=== PATIENT | female | born 1945 | race Caucasian/White ===

== ENCOUNTER → 2018-04-30 | Outpatient (CLI) | payer MEDICARE ==
--- NOTE | 2018-05-01 08:13 | CT ---
EXAMINATION TYPE: CT abdomen pelvis wo con DATE OF EXAM: 04/30/2018 COMPARISON: 11/11/2013 HISTORY: Generalized abdominal pain. CT DLP: 865 mGycm Examination of the solid and hollow viscera is limited given the lack of contrast. FINDINGS: LUNG BASES: No evidence for nodule. No evidence for infiltrate. LIVER/GB: Cholecystectomy clips are in place. No space-occupying hepatic lesion. PANCREAS: No pancreatic mass identified. No inflammatory process seen. SPLEEN: No evidence for splenomegaly. No intrasplenic lesions seen. ADRENALS: No adrenal nodules identified. No evidence for thickening. KIDNEYS: No evidence for renal mass. No nephrolithiasis. No hydronephrosis. BOWEL: Appendix has a normal appearance. No evidence of bowel obstruction. No inflammatory process. Lymph nodes: No evidence for adenopathy greater than 1 cm. Abdominal aorta: Atheromatous changes seen. No evidence for aneurysm. Genital organs: Nonspecific right ovarian cystic lesion measures 4.8 cm and has increased in size fro m prior study with previous measurement of 2.4 cm. Ultrasound correlation is recommended. Left ovary and uterus are unremarkable. Other: Degenerative changes lumbar spine. IMPRESSION: 1. Enlarging right ovarian cystic lesion. Ultrasound correlation recommended. 2. No evidence of diverticulitis or inflammatory process.
== END | disposition home or self-care (01) ==
LOC: RADCTMAIN 19:24
PROVIDERS: ATTEND Family Medicine
DX: N83.201 Unspecified ovarian cyst, right side (principal)
CPT/HCPCS: 74176

== ENCOUNTER → 2018-07-22 | Outpatient (CLI) | payer MEDICARE ==
[2018-07-22 13:26] LABS: Basophils % (A) 1 %; Eosinophils # (A) 0.2 k/uL (0-0.7); Eosinophils % (A) 4 %; HCT 42.3 % (34.0-46.0); HGB 13.8 gm/dL (11.4-16.0); Lymphocytes # (A) 1.2 k/uL (1.0-4.8); Lymphocytes % (A) 22 %; MCH 29.3 pg (25.0-35.0); MCHC 32.6 g/dL (31.0-37.0); MCV 89.7 fL (80.0-100.0); Mean Platelet Volume 7.4; Monocytes # (A) 0.3 k/uL (0-1.0); Monocytes % (A) 7 %; Neutrophils # (A) 3.5 k/uL (1.3-7.7); Neutrophils % (A) 66 %; Platelet Count 204 k/uL (150-450); RBC 4.72 m/uL (3.80-5.40); RDW 13.7 % (11.5-15.5); WBC 5.3 k/uL (3.8-10.6)
[2018-07-22 13:35] LABS: Potassium 5.2 mmol/L (3.5-5.1)
--- NOTE | 2018-07-22 14:16 | XR ---
EXAMINATION TYPE: XR chest 2V DATE OF EXAM: 07/22/2018 COMPARISON: None TECHNIQUE: PA and lateral views submitted. HISTORY: Preop FINDINGS: No acute infiltrate. No pneumothorax or interstitial edema. Hyperinflation suggestive of COPD. Degene rative and hypertrophic change of the spine. Surgical clips in the abdomen. Diffuse osteopenia. Arthr opathy of the shoulders. Atherosclerotic change of aorta. IMPRESSION: 1. No acute process
== END | disposition home or self-care (01) ==
LOC: LABPAT 12:03
PROVIDERS: ATTEND Orthopaedic Surgery
DX: Z01.818 Encounter for other preprocedural examination (principal); Z01.812 Encounter for preprocedural laboratory examination; M23.92 Unspecified internal derangement of left knee
CPT/HCPCS: 36415; 71046; 80051; 85025; 93005

== ENCOUNTER 2018-08-06 10:37 | Day surgery (SDC) | payer MEDICARE ==
[2018-07-30 16:01] VITALS: BMI 28.7
--- NOTE | 2018-08-05 09:04 | HP ---
HISTORY AND PHYSICAL CHIEF COMPLAINT: Left knee pain. HISTORY OF PRESENT ILLNESS: The patient is a 73-year-old retired female who presents with progressive left knee pain after an initial injury in April of 2018. She notes intermittent giving way along with progressive pain with weightbearing activities. She has tried medications and an injection with only partial temporary relief. She notes she is limited because of pain. PAST MEDICAL HISTORY: Significant for arthritis. PAST SURGICAL HISTORY: Significant for gallbladder removal and cataract surgery. CURRENT MEDICATIONS: Ibuprofen and Tylenol. ALLERGIES: She has allergies to ERYTHROMYCIN. FAMILY HISTORY: Significant for stroke and hypertension. SOCIAL HISTORY: Significant for previous tobacco use, however, she quit in 1966. REVIEW OF SYSTEMS: Sixteen point review of systems otherwise reviewed and is noncontributory. PHYSICAL EXAMINATION: On examination, the patient is approximately 5 feet, 5 inches, 175 pounds of mesomorphic habitus. HEENT exam is nonfocal. Neck is supple. She has painless passive motion of her left hip. Straight leg raise is negative. Active motion left knee -8 to 140 degrees of flexion. She has a mild effusion. She is tender about the medial joint line. Collaterals are stable, Estevan's negative, Elodia's elicits medial pain. Her distal neurovascular exam appears intact in the left lower extremity. Previous MRI report for the left knee from 05/30/2018 shows a posterior medial meniscal tear. IMPRESSION: Symptomatic left knee medial meniscal tear. RECOMMENDATIONS: I talked to the patient at length regarding her condition and treatment options. At this point, she is quite symptomatic despite conservative measures. After thorough discussion, she opts to proceed with surgery. We will plan to proceed with arthroscopic evaluation with probable partial medial meniscectomy. We will likely perform that as an outpatient procedure. Risks and benefits were discussed at length in layman's terms. MMODL / IJN: [id number] /
[~2018-08-06 10:37] MED LIST: DEXAMETHASONE SOD PHOSPHATE 10 MG/ML 1 ML VIAL IV ONE; LACTATED RINGERS 1,000 ML IV SCH; MORPHINE SULFATE 2 MG/ML SYRINGE IV PRN; ONDANSETRON 4 MG/2 ML VIAL IVP ONE; ONDANSETRON 4 MG/2 ML VIAL IVP PRN; ceFAZolin IN SWFI 2 GM/20 ML SYRINGE IVP ONE
[2018-08-06 11:30] VITALS: RESP 16
[2018-08-06] MEDS ORDERED: LIDOCAINE 1% 20 ML VIAL (10MG/ML) FOR IV START INTRADERMA ONE (11:41)
[2018-08-06] MEDS ORDERED: LIDOCAINE 1% INJ 10MG/ML (20 ML MDV) ONE (13:07)
[2018-08-06] MEDS ORDERED: fentaNYL (PF) 50 MCG/ML 2 ML AMP ONE (13:07)
[2018-08-06] MEDS ORDERED: PROPOFOL 10 MG/ML 20 ML VIAL IV ONE (13:07)
[2018-08-06] MEDS ORDERED: GLYCOPYRROLATE 0.2 MG/ML 2 ML VIAL ONE (13:07)
[2018-08-06] MEDS ORDERED: PHENYLEPHRINE-0.9% NACL SYG 1 MG/10 ML SYRINGE ONE (13:07)
[2018-08-06] MEDS ORDERED: NEOSTIGMINE 1 MG/ML 10 ML VIAL ONE (13:07)
[2018-08-06] MEDS ORDERED: HYDROmorphone (PF) 1 MG/ML ONE (13:07)
[2018-08-06] MEDS ORDERED: ROCURONIUM BROMIDE 10 MG/ML 10 ML VIAL IV ONE (13:07)
[2018-08-06] MEDS ORDERED: MIDAZOLAM 2 MG/2 ML VIAL ONE (13:07)
[2018-08-06] MEDS ORDERED: SUCCINYLCHOLINE CHLORIDE 100 MG/5 ML SYR IV ONE (13:07)
[2018-08-06] MEDS ORDERED: LACTATED RINGERS 1,000 ML IV ONE (13:40)
--- NOTE | 2018-08-06 13:58 | P.OP ---
Date of Procedure: 08/06/18 Preoperative Diagnosis: Left knee internal derangement Postoperative Diagnosis: Left knee posterior medial meniscal tear/posterior lateral meniscal tear/medial patellofemoral plica Procedure(s) Performed: Left knee arthroscopic partial medial meniscectomy/partial lateral meniscectomy/ plica resection Anesthesia: WILL Surgeon: Abdoulaye Delgado Estimated Blood Loss (ml): 10 Pathology: none sent Condition: stable Disposition: PACU Indications for Procedure: The patient's 73-year-old female presents with progressive left knee pain and mechanical symptoms despite conservative measures. She noted she was significantly limited by this. A discussion of the risks and benefits of continued conservative measures versus operative intervention was made with patient. She opted to proceed with surgery. Operative risks to include infection, neurovascular injury, development of blood clots, possible incomplete resolution of symptoms, possible worsening symptoms and need for subscap procedures was discussed. Informed consent was obtained. Operative Findings: As below Description of Procedure: The patient was brought to the operating room, and after induction of general anesthesia examined the left knee. Collaterals were stable, Estevan was negative, and posterior drawer was negative. The left lower extremity was prepped and draped in a normal fashion. A superior lateral portal was made through a 3 mm skin incision superior and lateral to the patella. This was used for outflow. A lateral portal was made through a 5 mm vertical skin incision lateral to the patella tendon above the joint line. Diagnostic arthroscopy was performed. On inspection of the medial compartment, a complex tear involving the posterior horn of the medial meniscus in the white-red junction was noted. This was debrided back to stable base with straight baskets and a motorized shaver. The edges were contoured. Grade 2-3 chondral changes were noted diffusely in the medial compartment. On inspection of the notch, the anterior cruciate ligament appeared to be intact. On inspection of the lateral compartment, oblique tear involving the middle to posterior one third the white-white junction was noted. This was debrided back to stable base with straight baskets and a motorized shaver. The edges were contoured. On inspection of the patellofemoral articulation, there was degenerative changes however no loose chondral fragments. The appeared to be a large medial patellofemoral plica that appeared to impinge of the medial femoral condyle through the arc of motion. This debrided with motorized shaver back to stable base. The gutters were clear debris. The knee was then thoroughly irrigated. The portals were closed with Steri-Strips. A sterile dressing was applied in addition to a compression stocking. The patient was awoken from general anesthesia and transferred to recovery room in good condition. Blood loss was estimated at 10 mL. No complications were incurred.
[2018-08-06 14:18] VITALS: TEMP 97.1
[2018-08-06 16:06] VITALS: BP 139/78; PULSE 64
== END 2018-08-06 16:10 | disposition home or self-care (01) ==
LOC: OR 10:37
PROVIDERS: ATTEND Orthopaedic Surgery
DX: S83.242A Other tear of medial meniscus, current injury, left knee, initial encounter (principal); S83.282A Other tear of lateral meniscus, current injury, left knee, initial encounter; X58.XXXA Exposure to other specified factors, initial encounter; M67.52 Plica syndrome, left knee; M19.90 Unspecified osteoarthritis, unspecified site; E78.5 Hyperlipidemia, unspecified; Z79.1 Long term (current) use of non-steroidal anti-inflammatories (NSAID); Z79.899 Other long term (current) drug therapy; Z88.1 Allergy status to other antibiotic agents
CPT/HCPCS: 84132; 29880; J2250; J1100; J2710; J2405; J2001; J3010; J1170; J2370; J0330; J2704; J0690

== ENCOUNTER 2019-05-05 10:42 | Day surgery (SDC) | payer MEDICARE ==
[2019-05-02 10:36] VITALS: BMI 27.7
[~2019-05-05 10:42] MED LIST changes: -DEXAMETHASONE SOD PHOSPHATE 10 MG/ML 1 ML VIAL IV ONE; -MORPHINE SULFATE 2 MG/ML SYRINGE IV PRN; -ONDANSETRON 4 MG/2 ML VIAL IVP ONE; -ONDANSETRON 4 MG/2 ML VIAL IVP PRN; -ceFAZolin IN SWFI 2 GM/20 ML SYRINGE IVP ONE
[2019-05-05] MEDS ORDERED: LIDOCAINE 1% 20 ML VIAL (10MG/ML) FOR IV START INTRADERMA ONE (10:59)
[2019-05-05 11:16] VITALS: TEMP 98.9
[2019-05-05] MEDS ORDERED: LIDOCAINE 1% INJ 10MG/ML (20 ML MDV) ONE (11:23)
[2019-05-05] MEDS ORDERED: PROPOFOL 10 MG/ML 20 ML VIAL IV ONE (11:23)
--- NOTE | 2019-05-05 11:29 | P.GSHP ---
History of Present Illness H&P Date: 05/05/19 Chief Complaint: GERD, screening colonoscopy This is a 74-year-old female status post EGD colonoscopy. Patient has had issues with some GERD and gastritis. She will also screening colonoscopy performed today. Past Medical History Past Medical History: Hyperlipidemia, Hypertension Additional Past Medical History / Comment(s): HAVING UPPER ABDOMINAL PAIN, CONSTIPATION, HX OF COLON POLYP History of Any Multi-Drug Resistant Organisms: None Reported Past Surgical History: Cholecystectomy, Orthopedic Surgery Additional Past Surgical History / Comment(s): VIN KNEE ARTHROSCOPY, VIN CATARACT, RT EYE DETACHED RETINA SX Past Anesthesia/Blood Transfusion Reactions: No Reported Reaction Smoking Status: Former smoker - Past Family History Father Family Medical History: CVA/TIA Mother Family Medical History: No Reported History Medications and Allergies Home Medications Medication Instructions Recorded Confirmed Type Atorvastatin [Lipitor] 5 mg PO DAILY 07/09/15 05/05/19 History amLODIPine BESYLATE/BENAZEPRIL 1 cap PO QAM 05/02/19 05/05/19 History [Lotrel 5-10 MG] Allergies Allergy/AdvReac Type Severity Reaction Status Date / Time erythromycin base Allergy Rash/Hives Verified 05/05/19 10:53 Surgical - Exam Vital Signs Temp Pulse Resp BP Pulse Ox 98.9 F 84 16 148/69 93 L 05/05/19 10:54 05/05/19 10:54 05/05/19 10:54 05/05/19 10:54 05/05/19 10:54 - General well developed, well nourished, no distress - Eyes PERRL - ENT normal pinna - Neck no masses - Respiratory normal expansion - Cardiovascular Rhythm: regular - Abdomen Abdomen: soft, non tender Assessment and Plan Assessment: GERD we'll perform EGD. We'll also perform screening colonoscopy.
--- NOTE | 2019-05-05 11:46 | P.OP ---
Date of Procedure: 05/05/19 Preoperative Diagnosis: Gastritis Screening colonoscopy Postoperative Diagnosis: Antral gastritis Diverticulosis Hemorrhoids Procedure(s) Performed: EGD Colonoscopy Anesthesia: MAC Surgeon: Elia Gilmore Pathology: other (Antrum) Condition: stable Disposition: PACU Description of Procedure: The patient's placed on the endoscopy table in the lateral position. She received IV sedation. The gastric was placed oropharynx passed in the esophagus into the stomach. Scope was placed through the pylorus. The first and second portion of duodenum appeared normal. Scope was then brought back the antrum and this was mildly inflamed. A biopsies performed. The scope was unretroflexed and remainder of the stomach appeared normal. There was no significant hiatal hernia. The GE junction was at 47 is. The distal esophagus. Normal. The proximal esophagus appeared normal. Scope was withdrawn for patient. Next digital rectal exam is performed which revealed internal/external hemorrhoids. The flexible colonoscope was then placed patient anus and passed throughout the entire colon. The ileocecal valve was visualized. The cecum, ascending and transverse colon appeared normal. In the descending and; was mild diverticular changes. The scope was then brought back the rectum this appeared normal. Scope withdrawn from patient and internal extra hemorrhoids are noted. Scope was withdrawn for patient.
[2019-05-05 11:53] VITALS: BP 98/63; PULSE 83; RESP 18
== END 2019-05-05 12:24 | disposition home or self-care (01) ==
LOC: ORWHC2ENDO 10:42
PROVIDERS: ATTEND Surgery
DX: Z12.11 Encounter for screening for malignant neoplasm of colon (principal); K29.50 Unspecified chronic gastritis without bleeding; E78.5 Hyperlipidemia, unspecified; K21.9 Gastro-esophageal reflux disease without esophagitis; K57.30 Diverticulosis of large intestine without perforation or abscess without bleeding; I10 Essential (primary) hypertension; Z86.010 Personal history of colon polyps; Z87.891 Personal history of nicotine dependence; Z79.899 Other long term (current) drug therapy; Z88.1 Allergy status to other antibiotic agents
CPT/HCPCS: 88305; 43239; J2001; J2704; G0121

== ENCOUNTER → 2019-06-02 | Outpatient (CLI) | payer MEDICARE | END | disposition home or self-care (01) | LOC: LABWHC1 13:35 | PROVIDERS: ATTEND Obstetrics & Gynecology | DX: N83.209 Unspecified ovarian cyst, unspecified side (principal) | CPT/HCPCS: 36415; 86304 ==

== ENCOUNTER → 2019-06-23 | Outpatient (CLI) | payer MEDICARE ==
--- NOTE | 2019-06-24 14:43 | MM ---
Reason for exam: screening (asymptomatic). Last mammogram was performed 4 years ago. History: Patient is postmenopausal. Physical Findings: A clinical breast exam by your physician is recommended on an annual basis and results should be correlated with mammographic findings. MG 3D Screening Mammo W/Cad Bilateral CC and MLO view(s) were taken. Prior study comparison: June 12, 2015, bilateral MG screening mammo w CAD. No significant changes when compared with prior studies. ASSESSMENT: Benign, BI-RAD 2 RECOMMENDATION: Routine screening mammogram of both breasts in 1 year.
== END | disposition home or self-care (01) ==
LOC: RADMAMWWP 13:41
PROVIDERS: ATTEND Family Medicine
DX: Z12.31 Encounter for screening mammogram for malignant neoplasm of breast (principal)
CPT/HCPCS: 77063; 77067

== ENCOUNTER → 2021-03-10 | Day surgery (SDC) | payer MEDICARE ==
[2021-03-08 17:52] VITALS: BMI 28.2
[~2021-03-10] MED LIST changes: +LIDOCAINE 1% (10MG/ML) FOR IV START INTRADERMA PRN; +LIDOCAINE 1% INJ 10MG/ML (20 ML MDV) ONE; +PROPOFOL 10 MG/ML 20 ML VIAL IV ONE
[2021-03-10 08:42] VITALS: TEMP 97.7
--- NOTE | 2021-03-10 09:53 | P.GSHP ---
History of Present Illness H&P Date: 03/10/21 Chief Complaint: Constipation, screening colonoscopy This a 75-year-old female who presents today for colonoscopy. She's had issues with constipation. Past Medical History Past Medical History: Hyperlipidemia, Hypertension Additional Past Medical History / Comment(s): HX OF COLON POLYP, diverticulitis, colitis. c/o bowel irregularity History of Any Multi-Drug Resistant Organisms: None Reported Past Surgical History: Cholecystectomy, Orthopedic Surgery Additional Past Surgical History / Comment(s): VIN KNEE ARTHROSCOPY, VIN PETER RACT, RT EYE DETACHED RETINA SX. Colonoscopy, EGD Past Anesthesia/Blood Transfusion Reactions: No Reported Reaction Smoking Status: Former smoker - Past Family History Father Family Medical History: CVA/TIA Mother Family Medical History: No Reported History Medications and Allergies Home Medications Medication Instructions Recorded Confirmed Type Atorvastatin [Lipitor] 5 mg PO DAILY 07/09/15 03/10/21 History amLODIPine BESYLATE/BENAZEPRIL 1 cap PO QAM 05/02/19 03/08/21 History [Lotrel 5-10 MG] Acetaminophen [Tylenol Extra 500 - 1,000 mg PO DIRECTED PRN 03/08/21 03/10/21 History Strength] Aspirin [Adult Low Dose Aspirin EC] 81 mg PO DAILY 03/08/21 03/08/21 History Allergies Allergy/AdvReac Type Severity Reaction Status Date / Time erythromycin base Allergy Rash/Hives Verified 03/10/21 08:40 Surgical - Exam Vital Signs Temp Pulse Resp BP Pulse Ox 97.7 F 70 17 169/81 96 03/10/21 08:40 03/10/21 08:40 03/10/21 08:40 03/10/21 08:40 03/10/21 08:40 - General well developed, well nourished, no distress - Eyes PERRL - ENT normal pinna - Neck no masses - Respiratory normal expansion - Cardiovascular Rhythm: regular - Abdomen Abdomen: soft, non tender Assessment and Plan Assessment: Constipation We'll perform screening colonoscopy
[2021-03-10 10:38] VITALS: BP 145/87; PULSE 70; RESP 17
--- NOTE | 2021-03-10 10:44 | P.OP ---
Date of Procedure: 03/10/21 Preoperative Diagnosis: Constipation Screening colonoscopy Postoperative Diagnosis: Diverticulosis Rectal polyp Procedure(s) Performed: Colonoscopy Anesthesia: MAC Surgeon: Elia Gilmore Pathology: other (Rectal polyp) Condition: stable Disposition: PACU Description of Procedure: The patient's placed on the endoscopy table in the lateral position. She received IV cyst. Digital rectal exam was performed which revealed no abnormalities. The colonoscope was then placed patient anus and passed thro ughout the entire colon. The ileocecal valve was visualized. The cecum, ascending and transverse colon appeared normal. The descending and sigmoid colon moderate diverticulosis. Scope was brought back the rectum and there was a small polyp seen this removed with a cold forcep. Scope was withdrawn for patient.
== END ==
LOC: ORWHC2ENDO 08:16
PROVIDERS: ATTEND Surgery
DX: K57.30 Diverticulosis of large intestine without perforation or abscess without bleeding (principal); D12.8 Benign neoplasm of rectum; E78.5 Hyperlipidemia, unspecified; I10 Essential (primary) hypertension; Z86.010 Personal history of colon polyps; Z87.19 Personal history of other diseases of the digestive system; Z90.49 Acquired absence of other specified parts of digestive tract; Z98.890 Other specified postprocedural states; Z98.42 Cataract extraction status, left eye; Z98.41 Cataract extraction status, right eye; Z87.891 Personal history of nicotine dependence; Z86.73 Personal history of transient ischemic attack (TIA), and cerebral infarction without residual deficits; Z79.82 Long term (current) use of aspirin; Z79.899 Other long term (current) drug therapy; Z88.1 Allergy status to other antibiotic agents
CPT/HCPCS: 88305; 45380; J2001; J2704

== ENCOUNTER → 2021-04-11 | Outpatient (CLI) | payer MEDICARE ==
--- NOTE | 2021-04-18 10:27 | MM ---
Reason for exam: screening (asymptomatic). Last mammogram was performed 1 year and 10 months ago. History: Patient is postmenopausal. Physical Findings: A clinical breast exam by your physician is recommended on an annual basis and results should be correlated with mammographic findings. MG 3D Screening Mammo W/Cad Bilateral CC and MLO view(s) were taken. Prior study comparison: June 23, 2019, bilateral MG 3d screening mammo w/cad. June 12, 2015, bilateral MG screening mammo w CAD. There are scattered fibroglandular densities. Benign vascular calcifications. Central left MLO asymmetric density does not persist on 3D images. No significant changes when compared with prior studies. ASSESSMENT: Benign, BI-RAD 2 RECOMMENDATION: Routine screening mammogram of both breasts in 1 year. Patient should continue monthly self breast exams. A negative report should not preclude additional follow up of suspicious palpable abnormalities.
== END | disposition home or self-care (01) ==
LOC: RADMAMWWP 15:48
PROVIDERS: ATTEND Obstetrics & Gynecology
DX: Z12.31 Encounter for screening mammogram for malignant neoplasm of breast (principal); Z78.0 Asymptomatic menopausal state
CPT/HCPCS: 77063; 77067

== ENCOUNTER → 2021-08-23 | Outpatient (CLI) | payer MEDICARE ==
--- NOTE | 2021-08-24 07:49 | CT ---
EXAMINATION TYPE: CT abdomen pelvis wo con DATE OF EXAM: 08/23/2021 HISTORY: RUQ pain, ureteral vaginal prolapse bladder, diverticulitis. CT DLP: 765.6 mGycm. Automated Exposure Control for Dose Reduction was Utilized. TECHNIQUE: CT scan of the abdomen and pelvis is performed with oral but without IV contrast. COMPARISON: Prior CT April 30, 2018 FINDINGS: Within the limitations of a non-contrast study, the following observations are made. LUNG BASES: No significant abnormality is appreciated. LIVER/GB: Cholecystectomy clips are redemonstrated. PANCREAS: No significant abnormality is seen. SPLEEN: No significant abnormality is seen. ADRENALS: No significant abnormality is seen. KIDNEYS: New moderate to severe right greater than left bilateral hydronephrosis. Hydroureter is pres ent. There is inferior displacement or prolapse of bladder seen best sagittal image 72. It is thought the UV junction bilaterally is at site of prolapse causing ureteral obstruction. BOWEL: Oral contrast reaches the splenic flexure. No suspicious small or large bowel dilatation. Norm al-appearing appendix from cecum in the right lower quadrant. Few diverticula in the proximal sigmoid colon. No CT evidence for acute diverticulitis. GENITAL ORGANS: Uterus prolapsed completely inferiorly seen best sagittal image 71 posterior to porti on of prolapsed bladder. Slightly larger thin-walled 6.1 x 4.8 cm right pelvic cyst or cystic lesion present in the right ovarian origin axial image 64. Few scattered pelvic phleboliths. LYMPH NODES: No greater than 1cm abdominal or pelvic lymph nodes are appreciated. OSSEOUS STRUCTURES: Underlying levoconvex scoliosis centered at L2-L3 level redemonstrated. Moderate to severe disc space narrowing with spurring and sclerosis right L2-L3 and right L3-L4 levels along w ith left L4-L5 levels. OTHER: Tiny fat-containing umbilical hernia. IMPRESSION: Complete prolapse of uterus. Partial prolapse of bladder. New Moderate to severe right greater than left hydronephrosis due to distal ureters extending inferiorly into portion of bladder that is prolapsed.
== END | disposition home or self-care (01) ==
LOC: RADCTMAIN 16:42
PROVIDERS: ATTEND Family Medicine
DX: N81.3 Complete uterovaginal prolapse (principal)
CPT/HCPCS: 74176

== ENCOUNTER → 2021-11-03 | Outpatient (CLI) | payer MEDICARE ==
--- NOTE | 2021-11-03 15:36 | XR ---
EXAMINATION TYPE: XR chest 2V DATE OF EXAM: 11/03/2021 COMPARISON: Chest x-ray 07/22/2018 HISTORY: Chronic cough TECHNIQUE: Frontal and lateral views of the chest are obtained. FINDINGS: There is no focal air space opacity, pleural effusion, or pneumothorax seen. The cardiac silhouette size is stable. There is eventration of the right hemidiaphragm. Aorta is dense. Arthropat hy present at the chromic clavicular joint. The osseous structures are intact. IMPRESSION: No acute cardiopulmonary process.
== END | disposition home or self-care (01) ==
LOC: RADXRMAIN 14:23
PROVIDERS: ATTEND Family Medicine
DX: R05.3 Chronic cough (principal)
CPT/HCPCS: 71046

== ENCOUNTER 2024-11-13 09:04 | Day surgery (SDC) | payer MEDICARE ==
[2024-11-13 12:03] VITALS: TEMP 97.2
[2024-11-13] MEDS: LACTATED RINGERS 1,000 ML IV SCH (12:09)
[2024-11-13] MEDS: IV FLUID CONTINUATION 1,000 ML IV ONE (12:09)
[2024-11-13] MEDS ORDERED: LIDOCAINE 1% INJ 10MG/ML (20 ML MDV) ONE (13:51)
[2024-11-13] MEDS ORDERED: PROPOFOL 10 MG/ML 20 ML VIAL IV ONE (13:51)
[2024-11-13 14:34] VITALS: BP 121/65; PULSE 78; RESP 18
--- NOTE | 2024-11-14 22:56 | P.OP ---
Date of Procedure: 11/13/24 Preoperative Diagnosis: Change in Bowel Habits Postoperative Diagnosis: Diverticulosis Procedure(s) Performed: Colonoscopy Anesthesia: MAC Surgeon: Cheko Avery Pathology: none sent Condition: stable Disposition: PACU Description of Procedure: The patient was brought to the endoscopy suite and placed in the left lateral decubitus position. After induction of IV sedation, the Olympus video colonoscope was passed to the cecum without difficulty. Cecal intubation was confirmed by the identification of the appendiceal orifice, the ileocecal valve, and cecal strap by palpation. Upon withdrawing the colonoscope, all mucosal surfaces were inspected. There was no evidence of malignancy, neoplasia, polyps, or mucosal abnormalities. There was diverticulosis noted in the left colon. Retroflexion in the rectum showed no internal hemorrhoids.
== END 2024-11-13 14:44 | disposition home or self-care (01) ==
LOC: ORWHC2ENDO 09:04
PROVIDERS: ATTEND Surgery
DX: K57.30 Diverticulosis of large intestine without perforation or abscess without bleeding (principal); I10 Essential (primary) hypertension; E78.5 Hyperlipidemia, unspecified; Z79.899 Other long term (current) drug therapy; Z88.8 Allergy status to other drugs, medicaments and biological substances
CPT/HCPCS: 45378; J2003; J2704

== ENCOUNTER → 2025-01-07 | Outpatient (CLI) | payer MEDICARE ==
[2025-01-07 13:08] LABS: African American GFR (CKD) 85 (>60 ml/min/1.73 sqM); Blood Urea Nitrogen 21 mg/dL (7-17); Non-African American GFR(CKD) 73 (>60 ml/min/1.73 sqM)
--- NOTE | 2025-01-07 15:20 | CT ---
EXAMINATION TYPE: CT abdomen pelvis wo/w con DATE OF EXAM: 01/07/2025 COMPARISON: 08/23/2021 CLINICAL INDICATION: Female, 79 years old with history of R10.84 ABD PAIN K40.90 INGUINAL HERNIA; PH H, inguinal hernia TECHNIQUE: Performed with Oral Contrast and with IV Contrast, patient injected with 100 mL of Isovue 300. CT DLP: [address] CTDI: mGy Automated exposure control for dose reduction was used. FINDINGS: The lung bases are clear. There is surgical absence of the gallbladder. There is no biliary ductal dilatation. There is no focal mass or organomegaly involving the liver, pancreas, spleen or adrenal glands. There is no solid renal mass or hydronephrosis and there is homogeneous contrast enhancement of the r enal parenchyma. There are multiple small bilateral simple cortical cysts. The caliber the abdominal aorta is normal is no retroperitoneal adenopathy or hemorrhage. The bowel loops are normal in caliber and there is no evidence of dilatation or obstruction. No infla mmatory changes are identified in the bowel wall or mesentery. There is no free intraperitoneal air or fluid. No pelvic mass, free fluid, abscess or adenopathy. There are surgical absence of the uterus. The osseous structures and soft tissues are intact. There is marked levoscoliosis and multilevel dege nerative disease in the lumbar spine. IMPRESSION: No acute changes within the abdomen or pelvis. [facility], Workstation: DA, 01/07/2025 3:17 PM
== END | disposition home or self-care (01) ==
LOC: RADCTMAIN 12:13
PROVIDERS: ATTEND Family Medicine
DX: K40.90 Unilateral inguinal hernia, without obstruction or gangrene, not specified as recurrent (principal)
CPT/HCPCS: 82565; 84520; 74178; 36415; Q9967